=== PATIENT | male | born 1940 | race Caucasian/White ===

== ENCOUNTER → 2016-12-25 | Day surgery (SDC) | payer MEDICARE, BC ==
[~2016-12-25] VITALS: Ht 170.2 cm; Wt 81.2 kg
[2016-12-25] VITALS (16 sets, daily range): BP systolic 117–150; BP diastolic 61–83
[~2016-12-25] MED LIST: ASPIR 8181 MG ORAL; Bupivacaine w/Epi 0.25% 30ml Vial INJ ONE; CARVEDILOL12.5 MG ORAL; DIAZEPAM5 MG ORAL; DiphenhydrAMINE 50mg/ml Inj IVP PRN; FLUOXETINE HCL20 M2 ORAL; FLUOXETINE HCL40 MG ORAL; FUROSEMIDE40 MG ORAL; HYDROmorphone 1mg/ml Carpuject SUBQ PRN; Hydromorphone 0.5mg/0.5ml inj IVP PRN; Ketorolac 30mg Inj IV PRN; LEVOTHYROXINE50 MCG ORAL; LOSARTAN POTASS25 MG ORAL; Midazolam 2mg/2ml Inj ONE; NEXIUM40 MG ORAL; NORCO 10/3251 EA ORAL; NS Irrig 1000ml IRRIG ONE; NS Irrig 1000ml ONE; OMEPRAZOLE20 M2 ORAL; POTASSIUM CHLO10 MEQ ORAL; PROSCAR5 MG ORAL; Propofol 10mg/ml 20ml IV ONE; SIMVASTATIN20 MG ORAL; SPIRONOLACTONE25 MG ORAL; TAMSULOSIN HCL0.4 MG ORAL; Tylenol #3 tab (300mg/30mg) ORAL PRN; WARFARIN SODIUM4 MG ORAL; [UNRECOGNIZED DRUG - OTHER]; fentaNYL 100 mcg/2 mL IV ONE; fentaNYL 100 mcg/2 mL IV PRN
--- NOTE | 2016-12-25 07:19 | Pre-Procedure Note/Attestation ---
Pre-Procedure Note/Attestation Complete Prior to Procedure Planned Procedure: bilateral Procedure Narrative: repair of bilateral inguinal hernias Indications for Procedure Pre-Operative Diagnosis: bilateral inguinal hernias Attestation I attest that I discussed the nature of the procedure; its benefits; risks and complications; and alternatives (and the risks and benefits of such alternatives ), prior to the procedure, with the patient (or the patient's legal solar manufacturer's representative). I attest that, if there was a reasonable possibility of needing a blood transfusion, the patient (or the patient's legal solar manufacturer's representative) was given the [facility] standardized written summary, pursuant to the Donte Cabin John Blood Safety Act ([place] Health and Safety Code # 1645, as amended). I attest that I re-evaluated the patient just prior to the surgery and that there has been no change in the patient's H&P, except as documented below: ERICK FREITAS Dec 25, 2016 07:19
--- NOTE | 2016-12-25 09:01 | Anethesia Preoperative Eval ---
Anesthesia Pre-op PMH/ROS General Date of Evaluation: Dec 25, 2016 Time of Evaluation: 08:00 Anesthesiologist: yessica ASA Score: ASA 2 Mallampati Score Class I : Soft palate, uvula, fauces, pillars visible Class II: Soft palate, uvula, fauces visible Class III: Soft palate, base of uvula visible Class IV: Only hard plate visible Mallampati Classification: Class I Surgeon: andria Diagnosis: B inguinal hernia Surgical Procedure: B inguinal hernia repair Anesthesia History: none Family History: no anesthesia problems Allergies: Coded Allergies: No Known Allergies (Unverified , 10/25/13) Medications: see eMAR Past Medical History Cardiovascular: Reports: valve dz Anesthesia Pre-op Phys. Exam Physician Exam Last Vital Signs Date Time Temp Pulse Resp B/P Pulse Ox O2 Delivery O2 Flow Rate FiO2 12/25/16 07:43 97.9 60 18 118/65 99 Room Air Jovana Henry MD Dec 25, 2016 09:01
--- NOTE | 2016-12-25 09:03 | Immediate Post-Op Evaluation ---
Immediate Post-Op Evalulation Immediate Post-Op Evalulation Procedure: B inguinal hernia repair Date of Evaluation: Dec 25, 2016 Time of Evaluation: 10:00 Nausea: No Vomiting: No Patient Status: awake, patent Hydration Status: adequate Drug: ancef 2 gm Given Within 1 Hr of Incision: Yes Time Given: 08:00 Jovana Henry MD Dec 25, 2016 09:03
--- NOTE | 2016-12-25 09:56 | Brief Operative Note ---
Immediate Post Operative Note Operative Note Pre-op Diagnosis: bilateral inguinal hernias Procedure: repair of bilateral inguinal hernias with mesh Post-op Diagnosis: same as pre-op Surgeon: andria Anesthesiologist: yessica Anesthesia: general Specimen: yes Complications: none Condition: stable Estimated Blood Loss: minimal Drains: none - - Implant(s) used?: Yes - prolene mesh ERICK FREITAS Dec 25, 2016 09:56
--- NOTE | 2016-12-25 19:27 | Operative Note - Dictated ---
DATE OF OPERATION: 12/25/2016 SURGEON: Mary Soto M.D. FIRER GLOST KILN: None. ANESTHESIOLOGIST: Dr. Henry. ANESTHESIA: General. PREOPERATIVE DIAGNOSIS: Bilateral inguinal hernia. POSTOPERATIVE DIAGNOSIS: Bilateral inguinal hernia. NAME OF OPERATION: Repair of bilateral inguinal hernias with Prolene mesh. FINDINGS AND INDICATIONS: The patient is a 76-year-old male with a history of progressively enlarging and painful bilateral inguinal hernias, more pronounced on right side than left. Because of the increasing size and pain, the patient came to see me and I advised him to undergo repair after his attending physician had told him the same. At surgery, indeed moderate-sized direct inguinal hernia were felt, which were repaired uneventfully with Prolene mesh. There was finding of a lipoma of the cord on the right side and a tiny indirect inguinal hernia on the left along with a moderate-sized direct on both sides. DESCRIPTION OF PROCEDURE: With the patient lying in the supine position on the operating table, under general anesthesia, with the entire abdominal region prepped and draped in usual sterile fashion with Betadine. After complete time-out, the right incision was made in the right groin, subcutaneous tissues divided, the external oblique aponeurosis was opened in the direction of its fibers. The ilioinguinal nerve was identified and retracted medially. The cord was isolated and skeletonized with lipoma of the cord and carefully dissected free to the internal ring and ligated up high and transected. The specimen was then sent to pathology. Hernia was irrigated. There was no indirect inguinal hernia and then the pelvic floor was checked and moderate-sized direct inguinal hernia was imbricated with 2-0 Vicryl material and then reinforced with Prolene mesh with 2-0 Prolene continuous suture approximating the shelving edge of the inguinal ligament to the combined aponeurosis of the internal oblique and transversus abdominis muscles with a mesh interface. A slit was made on the lateral aspect of the mesh to allow the cord structures to go through and the Prolene sutures snugly ligated. At this point, the area was irrigated. Hemostasis was adequate. The cord and the nerve were replaced anatomically and the external oblique aponeurosis closed with 3-0 Vicryl suture and the skin with 4-0 Vicryl subcuticular sutures and Steri-Strips. Marcaine 0.5% with epinephrine 20 mL was injected for long acting local anesthetic. The left side was done in the similar fashion by making an oblique vertical incision, subcutaneous tissues divided, and the external oblique aponeurosis identified and opened in the direction of its fibers. The hernia defect was identified as a direct inguinal hernia, which was imbricated with 2-0 Vicryl material after isolating the cord and the nerve, there is a small-sized indirect inguinal hernia, which was imbricated and the area ligated with 2-0 Vicryl material. The pelvic floor was then reinforced by approximately the shelving edge of the inguinal ligament to the combined aponeurosis of internal oblique and transversus abdominis muscles with a Prolene suture and 2-0 Prolene material. A slit was made on the lateral aspect of the mesh to allow the cord structures to go through and the Prolene sutures snugly ligated laterally to recreate a nice internal ring. The area was irrigated. Hemostasis was adequate. The subcutaneous tissues were reapproximated with 3-0 Vicryl suture and the skin with 4-0 Vicryl subcuticular sutures and Steri-Strips. Marcaine 0.5% with epinephrine 15 mL was injected for long-acting local anesthetic. The patient tolerated the procedure well. Estimated blood loss was less than 15 mL. Sponge and needle counts were correct. He went to the recovery room in stable condition. Isaias Soto M.D. DR: PRETTY JOB#: [id number] CC:
== END | disposition home or self-care (01) ==
LOC: SUR 06:54
DX: K40.20 Bilateral inguinal hernia, without obstruction or gangrene, not specified as recurrent (principal); D17.6 Benign lipomatous neoplasm of spermatic cord; I25.10 Atherosclerotic heart disease of native coronary artery without angina pectoris; Z95.5 Presence of coronary angioplasty implant and graft; I42.9 Cardiomyopathy, unspecified; I50.9 Heart failure, unspecified; I10 Essential (primary) hypertension; E03.9 Hypothyroidism, unspecified; E78.2 Mixed hyperlipidemia; M48.06 Spinal stenosis, lumbar region; M54.30 Sciatica, unspecified side; F41.9 Anxiety disorder, unspecified; N40.0 Benign prostatic hyperplasia without lower urinary tract symptoms; F34.1 Dysthymic disorder; I49.5 Sick sinus syndrome; I44.39 Other atrioventricular block; I47.2 Ventricular tachycardia; Z95.0 Presence of cardiac pacemaker; Z79.82 Long term (current) use of aspirin; Z79.899 Other long term (current) drug therapy; Z88.0 Allergy status to penicillin
CPT/HCPCS: 49505; C1781; J0690; J1170; J1885; J2250; J2704; J3010; 94003; 94150

== ENCOUNTER 2017-07-07 11:48 | Outpatient (CLI) | payer MEDICARE, BC ==
[~2017-07-07 11:48] MED LIST changes: -Bupivacaine w/Epi 0.25% 30ml Vial INJ ONE; -DiphenhydrAMINE 50mg/ml Inj IVP PRN; -HYDROmorphone 1mg/ml Carpuject SUBQ PRN; -Hydromorphone 0.5mg/0.5ml inj IVP PRN; -Ketorolac 30mg Inj IV PRN; -Midazolam 2mg/2ml Inj ONE; -NS Irrig 1000ml IRRIG ONE; -NS Irrig 1000ml ONE; -Propofol 10mg/ml 20ml IV ONE; -Tylenol #3 tab (300mg/30mg) ORAL PRN; -fentaNYL 100 mcg/2 mL IV ONE; -fentaNYL 100 mcg/2 mL IV PRN
== END 2017-07-07 13:48 | disposition home or self-care (01) ==
LOC: RAD 11:48
DX: Z01.818 Encounter for other preprocedural examination (principal)

== ENCOUNTER 2017-07-16 07:39 | Day surgery (SDC) | payer MEDICARE, BC ==
--- NOTE | 2017-07-07 12:58 | Diagnostic Imaging Report ---
Indication: COUGH Technique: 2 views of the chest Comparison: 10/14/2007 Findings: There is been interim revision of previously demonstrated median sternotomy, with a aortic valve prosthesis present on the current study. 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 Lung infiltrates are clear. Heart size is normal. Aorta is tortuous Impression: Findings as noted. No acute process
[~2017-07-16] VITALS: Ht 170.2 cm; Wt 78.0 kg
[2017-07-16] VITALS (15 sets, daily range): BP systolic 100–145; BP diastolic 51–63
[~2017-07-16 07:39] MED LIST changes: +AMLODIPINE BESYL5 MG ORAL; +ATORVASTATIN CA40 MG ORAL; +Bupivacaine w/Epi 0.25% 30ml Vial INJ ONE; +COL-RITE PO; +MYRBETRIQ50 MG PO
--- NOTE | 2017-07-16 08:26 | Pre-Procedure Note/Attestation ---
Pre-Procedure Note/Attestation Complete Prior to Procedure Planned Procedure: left Procedure Narrative: repair of left inguinal hernia( recurrent) Indications for Procedure Pre-Operative Diagnosis: left inguinal recurrent hernia Attestation I attest that I discussed the nature of the procedure; its benefits; risks and complications; and alternatives (and the risks and benefits of such alternatives ), prior to the procedure, with the patient (or the patient's legal senior outside sales representative). I attest that, if there was a reasonable possibility of needing a blood transfusion, the patient (or the patient's legal senior outside sales representative) was given the [facility] standardized written summary, pursuant to the Donte Noel Blood Safety Act ([place] Health and Safety Code # 1645, as amended). I attest that I re-evaluated the patient just prior to the surgery and that there has been no change in the patient's H&P, except as documented below: ERICK FREITAS Jul 16, 2017 08:26
[2017-07-16] MEDS ORDERED: NORCO 10/3251 EA ORAL (08:42)
[2017-07-16] MEDS ORDERED: Sterile Water Irrig 1000ml IRRIG ONE (09:30)
[2017-07-16] MEDS ORDERED: fentaNYL 100 mcg/2 mL IV ONE (09:30)
[2017-07-16] MEDS ORDERED: Metoclopramide 10mg/2ml Inj ONE (09:30)
[2017-07-16] MEDS ORDERED: Ketorolac 30mg Inj ONE ×2 (09:30→11:54)
[2017-07-16] MEDS ORDERED: Neostigmine 1mg/ml 10ml Inj ONE (09:30)
[2017-07-16] MEDS ORDERED: Glycopyrrolate 0.2mg/ml 1ml Vial ONE (09:30)
[2017-07-16] MEDS ORDERED: Morphine Sulfate 10mg/ml Inj ONE (09:30)
[2017-07-16] MEDS ORDERED: Midazolam 2mg/2ml Inj ONE (09:30)
[2017-07-16] MEDS ORDERED: Zemuron 50mg/5ml Inj IV ONE (09:30)
[2017-07-16] MEDS ORDERED: Propofol 10mg/ml 20ml IV ONE (09:30)
[2017-07-16] MEDS ORDERED: NS Irrig 1000ml IRRIG ONE (09:55)
--- NOTE | 2017-07-16 10:12 | Anethesia Preoperative Eval ---
Anesthesia Pre-op PMH/ROS General Date of Evaluation: Jul 16, 2017 Time of Evaluation: 09:32 Anesthesiologist: TERESA ASA Score: ASA 3 Mallampati Score Class I : Soft palate, uvula, fauces, pillars visible Class II: Soft palate, uvula, fauces visible Class III: Soft palate, base of uvula visible Class IV: Only hard plate visible Mallampati Classification: Class I Surgeon: FORTINO Diagnosis: Left Inguinal Hernia Repair Surgical Procedure: Left Inguinal Hernia Repair with mesh Anesthesia History: none Family History: no anesthesia problems Allergies: Coded Allergies: No Known Allergies (Unverified , 10/25/13) Medications: see eMAR Anesthesia Pre-op Phys. Exam Physician Exam Last Vital Signs Date Time Temp Pulse Resp B/P (MAP) Pulse Ox O2 Delivery O2 Flow Rate FiO2 07/16/17 08:16 98.0 51 18 108/58 95 Room Air Constitutional: NAD Neurologic: CN 2-12 intact Cardiovascular: RRR Respiratory: CTA Airway Exam Mallampati Score: Class II MO: full ROM: full Roman Candelaria M.D. Jul 16, 2017 10:12
--- NOTE | 2017-07-16 10:16 | Anethesia Preoperative Eval ---
Anesthesia Pre-op PMH/ROS General Date of Evaluation: Jul 16, 2017 Time of Evaluation: 09:32 ASA Score: ASA 3 Mallampati Score Class I : Soft palate, uvula, fauces, pillars visible Class II: Soft palate, uvula, fauces visible Class III: Soft palate, base of uvula visible Class IV: Only hard plate visible Mallampati Classification: Class I Surgeon: FORTINO Diagnosis: Left Inguinals Hernia Surgical Procedure: Left Inguinal Hernia Repair with mesh Anesthesia History: none Family History: no anesthesia problems Allergies: Coded Allergies: No Known Allergies (Unverified , 10/25/13) Medications: see eMAR Anesthesia Pre-op Phys. Exam Physician Exam Last Vital Signs Date Time Temp Pulse Resp B/P (MAP) Pulse Ox O2 Delivery O2 Flow Rate FiO2 07/16/17 08:16 98.0 51 18 108/58 95 Room Air Neurologic: CN 2-12 intact Cardiovascular: RRR Respiratory: CTA Airway Exam Mallampati Score: Class II MO: full ROM: full Teeth: intact Anesthesia Pre-op A/P Risk Assessment & Plan Plan: Roman Amor M.D. Jul 16, 2017 10:16
--- NOTE | 2017-07-16 10:21 | Immediate Post-Op Evaluation ---
Immediate Post-Op Evalulation Immediate Post-Op Evalulation Procedure: Left Inguinal Hernia Repair with Mesh Date of Evaluation: Jul 16, 2017 Time of Evaluation: 10:45 IV Fluids: 1000 Blood Products: 0 Estimated Blood Loss: 5 Urinary Output: 0 Blood Pressure Systolic: 105 Blood Pressure Diastolic: 92 Pulse Rate: 78 Respiratory Rate: 16 O2 Sat by Pulse Oximetry: 99 Temperature (Fahrenheit): 98 Pain Score (1-10): 0 Nausea: No Vomiting: No Patient Status: awake, reacts, patent Hydration Status: adequate Given Within 1 Hr of Incision: Yes Time Given: 09:45 Roman Candelaria M.D. Jul 16, 2017 10:21
--- NOTE | 2017-07-16 10:22 | 48 Hour Post Anesthesia Eval ---
Post Anesthesia Evaluation Procedure: Left Inguinal Hernia Repair with Mesh Date of Evaluation: Jul 18, 2017 Time of Evaluation: 08:00 Blood Pressure Systolic: 113 0: 76 Pulse Rate: 18 Respiratory Rate: 16 Temperature (Fahrenheit): 98 O2 Sat by Pulse Oximetry: 99 Airway: patent Nausea: No Vomiting: No Hydration Status: adequate Mental Status/LOC: patient returned to baseline Follow-up care needed: patient intructions given Roman Candelaria M.D. Jul 16, 2017 10:22
[2017-07-16] MEDS ORDERED: Metoclopramide 10mg/2ml Inj IVP PRN (10:30)
--- NOTE | 2017-07-16 10:40 | Brief Operative Note ---
Immediate Post Operative Note Operative Note Pre-op Diagnosis: left inguinal recurrent hernia Procedure: repair o left inguinal recurrent hernia with mesh (plug and overlay) Surgeon: andria Anesthesiologist: fco Anesthesia: general, moderate sedation Specimen: none Complications: none Condition: stable Fluids: lr Estimated Blood Loss: minimal Drains: other Implant(s) used?: No ERICK FREITAS Jul 16, 2017 10:40
[2017-07-16] MEDS ORDERED: HYDROmorphone 1mg/ml Carpuject SUBQ PRN (10:45)
[2017-07-16] MEDS ORDERED: Tylenol #3 tab (300mg/30mg) ORAL PRN (10:45)
[2017-07-16] MEDS ORDERED: Norco 5mg/325mg tab ORAL PRN (10:45)
[2017-07-16] MEDS: fentaNYL 100 mcg/2 mL IV PRN ×4 (11:05→11:37)
[2017-07-16] MEDS: Hydromorphone 0.5mg/0.5ml inj IVP PRN ×2 (11:18→11:36)
[2017-07-16] MEDS ORDERED: Meperidine 25mg/0.5ml Inj (FOR RIGORS ONLY) IV PRN (11:45)
[2017-07-16] MEDS ORDERED: DiphenhydrAMINE 50mg/ml Inj IVP ONE (11:45)
--- NOTE | 2017-07-16 11:45 | Operative Note - Dictated ---
DATE OF OPERATION: 07/16/2017 SURGEON: Isaias Soto M.D. CIGAR HEAD PEGGER: None. ANESTHESIOLOGIST: Dr. Roman Arredondo. ANESTHESIA: General. PREOPERATIVE DIAGNOSIS: Recurrent left inguinal hernia. POSTOPERATIVE DIAGNOSIS: Recurrent left inguinal hernia. NAME OF OPERATION: Repair of recurrent left inguinal hernia with Prolene plug and overlaid. FINDINGS AND INDICATIONS: The patient is a 76-year-old male, with a history of having had a bilateral inguinal hernia repairs in the last year by me. He developed some increasing pain and a tender area on the left groin, on the lateral aspect of the incision, and at surgery indeed, there was such which had been improving with a dynamic ultrasound which showed a small recurrent left hernia. At surgery indeed, the area had torn on the lateral aspect on the tissue and for approximately 1.5 to 2 cm which were repaired with a plug and a small overlay. The old mesh was left in place. PROCEDURE: With the patient lying in the supine position on the operating table, under general anesthesia with the entire lower abdominal and groin regions, prepped and draped in usual sterile fashion with Betadine, the old oblique incision in the left groin was opened, subcutaneous tissues divided. The area was then checked for hemostasis and the external oblique aponeurosis was opened in the direction of its fibers. The cord was isolated and skeletonized, hemostasis was double checked which was adequate with the cautery. The hernia defect was found and a roll of Prolene suture was then made to fit into the defect as the plug and then the small overlaid with also Prolene and both of them sutured with 2-[address] with excellent repair. The cord was intact. The nerve could be seen and left intact. The external oblique aponeurosis was then closed with interrupted Prolene 3-0 sutures and the subcutaneous tissues with 3-0 Vicryl subcutaneous and the skin with 4-0 Vicryl subcuticular sutures and Steri-Strips. Marcaine 0.5% with epinephrine 20 mL was injected for long-acting local anesthetic. The patient tolerated the procedure well. Estimated blood loss was less than 5 mL. Sponge and needle counts were correct. He went to the recovery room in stable condition. Isaias Soto M.D. DR: MAZIN JOB#: [id number] CC:
[2017-07-16] MEDS ORDERED: Ketorolac 30mg Inj IV ONE (12:00)
[2017-07-16] MEDS ORDERED: Tamsulosin 0.4mg cap ORAL SCH (17:00)
== END 2017-07-16 17:30 | disposition home or self-care (01) ==
LOC: SUR 07:39
DX: K40.91 Unilateral inguinal hernia, without obstruction or gangrene, recurrent (principal); E03.9 Hypothyroidism, unspecified; E78.2 Mixed hyperlipidemia; F32.9 Major depressive disorder, single episode, unspecified; F41.9 Anxiety disorder, unspecified; I25.10 Atherosclerotic heart disease of native coronary artery without angina pectoris; Z95.5 Presence of coronary angioplasty implant and graft; I10 Essential (primary) hypertension; I50.9 Heart failure, unspecified; I51.7 Cardiomegaly; I48.91 Unspecified atrial fibrillation; I48.92 Unspecified atrial flutter; J44.9 Chronic obstructive pulmonary disease, unspecified; K55.9 Vascular disorder of intestine, unspecified; N40.0 Benign prostatic hyperplasia without lower urinary tract symptoms; G89.29 Other chronic pain; M54.9 Dorsalgia, unspecified; M51.06 Intervertebral disc disorders with myelopathy, lumbar region; I77.819 Aortic ectasia, unspecified site; I35.1 Nonrheumatic aortic (valve) insufficiency; Z95.2 Presence of prosthetic heart valve
CPT/HCPCS: 49520; 71020; C1781; J1170; J1885; J2250; J2270; J2704; J2710; J2765; J3010; 94003; 94150; J2180